=== PATIENT | male | born 1965 | race Caucasian/White ===

== ENCOUNTER 2023-07-16 14:18 | Emergency (ER) | payer MEDICARE, MEDICAID, SELFPAY ==
--- NOTE | 2023-07-16 15:45 | ED_ITS ---
HPI - Ear Problem General Chief complaint: Ear Problems Stated complaint: L ear pain Time Seen by Provider: 07/16/23 15:51 Source: patient Mode of arrival: ambulatory Limitations: no limitations History of Present Illness HPI Narrative: 58 yo male with history of hearing loss, uses hearing aid in the left ear who presents to the ER for evaluation of left ear pain and drainage for the last several days. recently on topical ear drops from his doctor in [place] but does not know what they were for. he reports sensation of water in the ear and pressure. 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 no bloody drainage, fever, runny nose, or URI symptoms MD Complaint: ear pain, ear discharge and decreased hearing Location: left ear Duration: constant Severity: moderate Relieving factors: nothing Exacerbating factors: chewing, position of head and palpation Discharge from ear: yes - clear Associated symptoms ear: decreased hearing, headache and external ear tenderness Treatment prior to arrival: eardrops Related Data Previous Rx's Medication Instructions Recorded amoxicillin 875 mg-potassium 1 tab PO BID #14 tabs 07/16/23 clavulanate 125 mg tablet ibuprofen 600 mg tablet 600 mg PO Q8H PRN pain #14 tabs 07/16/23 hawgejfk-[id number]-ldsyaivte 3.5 4 drp otic (ear) left Q8H 7 days 07/16/23 mg-10,000 unit/mL-1 % ear #10 mL drops,susp Allergies Allergy/AdvReac Type Severity Reaction Status Date / Time No Known Allergies Allergy Verified 07/16/23 15:48 Review of Systems Review of Systems: Yes all other systems are reviewed and are negative PMFSH Social History Social History Advance Directives: No Physical Exam Vital Signs: Vital Signs: Last Vital Signs Temp 96.7 F L 07/16/23 15:47 Pulse 77 07/16/23 15:47 Resp 18 07/16/23 15:47 BP 125/95 H 07/16/23 15:47 Pulse Ox 99 07/16/23 15:47 O2 Del Method Room Air 07/16/23 15:47 BMI result Body Mass Index 30.4 Appearance: Alert. Oriented X3. No acute distress. HEENT: normal external inspection. right EAC and TM normal to inspection. left EAC is swollen, erythematous with left TM with erythema and fluid behind. CVS: Normal heart rate and rhythm. Pulses normal. Respiratory: No respiratory distress. Skin: Skin warm and dry. Normal skin color. Normal skin turgor. No rashes. Extremities: normal inspection x4 Neuro: Oriented X 3. grossly normal, nonfocal Course Course Course Narrative: r Medical Decision Making Medical Decision Making [facility] Narrative: 58 yo male presenting with left ear pain and drainage for the last few days. hearing loss and wears hearing aid in the left. exam c/w AOM and otitis media will treat w/ PO and topical abx. stable for d/c home Differential Diagnosis Differential Diagnoses: The differential diagnosis associated with the presentation includes acute otitis media, otitis externa, ruptured TM Prescription Management I considered prescription management with: Pain Medication and Antibiotic Chronic Conditions Patient?s care impacted by: Other (hearing loss) Critical Care Time Critical Care Time Critical Care Time: No Discharge Plan Discharge Clinical Impression: Acute otitis media Qualifiers: Otitis media type: suppurative Laterality: left Recurrence: non-recurrent Spontaneous tympanic membrane rupture: without spontaneous rupture Qualified Code(s): H66.002 - Acute suppurative otitis media without spontaneous rupture of ear drum, left ear Acute otitis externa Qualifiers: Otitis externa type: diffuse Laterality: left Qualified Code(s): H60.312 - Diffuse otitis externa, left ear Patient Disposition: Home, Self-Care Instructions: Otitis Externa (DC), Ear Infection (ED) Additional Instructions: Take the prescribed antibiotics as directed, complete the entire course and do not miss any doses Use the antibiotic drops as directed for 1 week Do not get water in your ear, use a cotton ball in your ear when you shower Do not use Q-tips If possible do not use your hearing aid for the next 1 week so your ear can heal If you develop new or worsening symptoms call 911 or come back to the ER for further evaluation. Prescriptions: New amoxicillin-pot clavulanate 875-125 mg tablet 1 tab PO BID Qty: 14 0RF [id number]-gvqlmvmdf-XH 3.5-10,000-1 mg/mL-unit/mL-% drops,suspension 4 drp otic (ear) left Q8H 7 Days Qty: 10 0RF ibuprofen 600 mg tablet 600 mg PO Q8H PRN (Reason: pain) Qty: 14 0RF Interventions: ED Discharge Assessment Last Done: 07/16/23 16:03 Discharge Date/Time: 07/16/23 16:19
[2023-07-16 15:47] VITALS: BP 125/95; PULSE 77; RESP 18; TEMP 35.9; O2SAT 99; BMI 30.4
== END 2023-07-16 16:19 | disposition home or self-care (01) ==
LOC: HO.ED 15:57
PROVIDERS: Emergency Provider Emergency Medicine Emergency Medical Services
DX: H66.002 Acute suppurative otitis media without spontaneous rupture of ear drum, left ear (principal); H60.312 Diffuse otitis externa, left ear
CPT/HCPCS: 99282; 99283

== ENCOUNTER 2023-07-18 15:41 | Emergency (ER) | payer MEDICARE, MEDICAID, SELFPAY ==
[2023-07-18 16:16] VITALS: BP 116/85; PULSE 81; RESP 18; TEMP 36.8; O2SAT 95; BMI 30.3
--- NOTE | 2023-07-18 16:16 | ED_ITS ---
HPI - General Adult General Chief complaint: Asthma Stated complaint: asthma Time Seen by Provider: 07/18/23 18:33 Source: patient Mode of arrival: ambulatory Limitations: no limitations History of Present Illness HPI narrative: Patient is a 58-year-old male with history of asthma presenting to the emergency department with complaint of nonproductive cough, wheezing and shortness of breath not improving with his inhaler. Denies fevers. Expiratory wheezing noted. States was recently treated for ear infection. Denies chest pain or palpitations. MD complaint: shortness of breath Onset (ago): day(s) Associated symptoms: cough and shortness of breath Treatments prior to arrival: other (Albuterol inhaler) Related Data Previous Rx's Medication Instructions Recorded amoxicillin 875 mg-potassium 1 tab PO BID #14 tabs 07/16/23 clavulanate 125 mg tablet ibuprofen 600 mg tablet 600 mg PO Q8H PRN pain #14 tabs 07/16/23 [id number]-ipkncwztm-qbskmavmy 3.5 4 drp otic (ear) left Q8H 7 days 07/16/23 mg-10,000 unit/mL-1 % ear #10 mL drops,susp azithromycin 250 mg tablet See Rx Instructions PO .COMPLEX #6 07/18/23 tabs benzonatate 100 mg capsule 100 mg PO TID PRN cough #20 caps 07/18/23 prednisone 20 mg tablet 40 mg (2 x 20 mg) PO DAILY #10 tabs 07/18/23 Allergies Allergy/AdvReac Type Severity Reaction Status Date / Time No Known Allergies Allergy Verified 07/18/23 16:20 Review of Systems Review of Systems: As per HPI. Yes all other systems are reviewed and are negative Constitutional: Constitutional: Reports as per HPI [facility] Social History Social History Advance Directives: No Physical Exam ED Vital Signs: Vital Signs - 24 hr 07/18/23 16:16 Temperature 98.2 F Pulse Rate 81 Respiratory Rate 18 Blood Pressure 116/85 Pulse Oximetry 95 Oxygen Delivery Method Room Air BMI result Body Mass Index 30.3 Vital signs have been reviewed and appear to be correct. Blood pressure normal. Heart rate normal. Respiratory rate normal. Temperature normal. Oxygen saturation normal. Const General: cooperative, healthy appearing and no acute distress Orientation/consciousness: oriented to person, oriented to place, oriented to time and patient oriented x3 Limitations: no limitations HENMT Head: Yes normocephalic and Yes atraumatic Ears: external ears normal General nose exam: Normal external nose present Face and sinus: Yes face symmetric Mouth: oropharynx normal and moist mucous membranes Throat: Yes uvula midline Eyes Pupils: Equal, round and reactive pupils present Neck Neck: Yes normal visual inspection and Yes supple Resp Effort & Inspection: normal respiratory effort, able to speak in complete sentences, not labored, no tripod positioning and no use of accessory muscles Auscultation: wheezes expiratory wheezes and upper bilaterally Cardio Rate: regular rate Rhythm: regular rhythm Heart sounds: S1 normal heart sound present and S2 normal heart sound present GI Palpation (GI): Soft to palpation and nontender Auscultation: normoactive bowel sounds General: Yes no CVA tenderness Back/Spine/Pelvis Back: no CVA tenderness Skin General skin exam: elasticity normal and turgor normal Neuro General: oriented to person, oriented to place, oriented to time, patient oriented x3, moves all extremities, no focal motor deficits and CN's II-XI intact bilaterally Cranial nerves: Yes Equal, round and reactive pupils present Cognition (Neuro): normal cognition Extrem General: Yes full ROM, Yes no pedal edema and Yes no calf tenderness Psych Mental Status: mental status grossly normal Affect: normal affect Thought process: Normal thought process present Medical Decision Making Medical Decision Making [facility] Narrative: Patient is a 58-year-old male with history of asthma presenting to the emergency department with complaint of nonproductive cough, wheezing and shortness of breath not improving with his inhaler. On exam patient is awake, A+Ox3, VS WNL, afebrile, normal neurological exam without focal deficits, physical exam findi ngs as above. Given reported symptoms and physical exam findings, initial differential includes asthma exacerbation, bronchitis, viral illness, flu, COVID. Swabs for flu and COVID negative, patient updated on results and all questions answered. Will treat with course of azithromycin as well as short course of prednisone and benzonatate for cough. Patient states he has adequate amount left in his albuterol inhaler. Instructed patient to follow-up with primary care provider. Return precautions discussed. Patient verbalized understanding of and agreement with plan. Differential Diagnosis Differential Diagnoses: The differential diagnosis associated with the presentation includes As per [facility]. Lab Data [facility] Lab Attestation statement: I reviewed the patient's lab results. As per MDM. Labs: Lab Results 07/18/23 Range/Units 16:36 COVID-19 (BRANDON) Negative (Negative) COVID-19 Clin Com See Note Influenza Type A (GONZÁLEZ) Negative (Negative) Influenza Type B (GONZÁLEZ) Negative (Negative) Influenza A & B Note See Note External Record Review External record reviewed: Inpatient record, Office record and Outpatient record Prescription Management I considered prescription management with: Antibiotic and Other Chronic Conditions Patient?s care impacted by: Other (Asthma) Discharge Plan Discharge Clinical Impression: Acute asthmatic bronchitis Patient Disposition: Home, Self-Care Instructions: Acute Bronchitis (ED) Additional Instructions: You are evaluated in the emergency department today for shortness of breath and wheezing which is likely related to bronchitis. You are being prescribed an antibiotic, please complete the full course as prescribed. You are also being prescribed short course of steroids. Please follow-up with your primary care provider. Return to the emergency department if you develop worsening shortness of breath, difficulty breathing, chest pain, fever 100.4? F or greater, or any other concerning symptoms. Prescriptions: New prednisone 20 mg tablet 40 mg PO DAILY Qty: 10 0RF azithromycin 250 mg tablet See Rx Instructions .ROUTE .COMPLEX Qty: 6 0RF Rx Instructions: For 250 mg dose pack: take 500 mg today (day 1), then 250 mg for 4 days (days 2-5) benzonatate 100 mg capsule 100 mg PO TID PRN (Reason: cough) Qty: 20 0RF No Action amoxicillin-pot clavulanate 875-125 mg tablet 1 tab PO BID Qty: 14 0RF gugodorm-xgvqzjysw-DU 3.5-10,000-1 mg/mL-unit/mL-% drops,suspension 4 drp otic (ear) left Q8H 7 Days Qty: 10 0RF ibuprofen 600 mg tablet 600 mg PO Q8H PRN (Reason: pain) Qty: 14 0RF
[2023-07-18 17:12] LABS: IDNOW Serial# 9DB6401D; Influenza A Negative (Negative); Influenza B2 Negative (Negative)
[2023-07-18 17:13] LABS: COVID-19 Test Negative (Negative); IDNOW Serial# 55D5AD1C
== END 2023-07-18 18:42 | disposition home or self-care (01) ==
PROVIDERS: Registered Nurse Emergency; Emergency Provider Emergency Medicine
DX: J45.909 Unspecified asthma, uncomplicated (principal); Z11.52 Encounter for screening for COVID-19; Z20.822 Contact with and (suspected) exposure to COVID-19
CPT/HCPCS: 87502; 87635; 99282; 99283